=== PATIENT | male | born 1970 | race Caucasian/White ===

== ENCOUNTER 2017-05-16 12:08 | Emergency (ER) | END 2017-05-16 14:44 | disposition home or self-care (01) ==

== ENCOUNTER 2017-05-18 13:54 | Emergency (ER) | END 2017-05-18 14:13 | disposition home or self-care (01) ==

== ENCOUNTER 2017-05-23 07:43 | Emergency (ER) | END 2017-05-23 09:04 | disposition home or self-care (01) ==